=== PATIENT | female | born 2000 | race Caucasian/White ===

== ENCOUNTER → 2023-12-22 13:53 | Outpatient (BNVA) | payer BC, SELFPAY | DX: Z76.89 Persons encountering health services in other specified circumstances (principal) | CPT/HCPCS: 80053; 80061; 84439; 84443; 84481; 85025 ==

== ENCOUNTER 2024-03-05 20:34 | Emergency (ER) | payer BC, MEDICAID, SELFPAY ==
[2024-03-05 20:48] VITALS: BP 138/96; PULSE 102; RESP 22; TEMP 36.8; O2SAT 98; BMI 51.0
[2024-03-05 21:12] LABS: Basophils % 0.2 %; Eosinophils % 0.1 %; Hematocrit 46.8 % (36-47); Lymphocytes % 5.7 %; Mean Corpuscular HGB Conc 32.5 g/dL (30-55); Mean Corpuscular Hemoglobin 28.4 pg (27-33); Mean Corpuscular Volume 87.5 fl (85-98); Monocytes % 5.7 %; Neutrophils # 15.15 10^3/uL (1.8-7.7); Nucleated Red Blood Cells % 0 %; Platelet Count 305 10^3/cmm (157-399); Red Blood Count 5.35 10^6/uL (3.85-5.65); Red Cell Distribution Width 12.4 % (12.1-15.1); White Blood Count 17.24 10^3/uL (3.29-11.43)
[2024-03-05 21:23] LABS: HCG, Serum Qual Negative (Negative)
[2024-03-05 21:29] LABS: Alanine Aminotransferase 17 U/L (0-33); Albumin Level 4.5 g/dL (3.5-5.2); Alkaline Phosphatase 144 U/L (35-105); Anion Gap 19.1 (5-19); Aspartate Amino Transferase 21 U/L (0-32); Blood Urea Nitrogen 11 mg/dL (6-20); Calcium 9.9 mg/dL (8.5-10.5); Carbon Dioxide 21 mmol/L (22-29); Chloride 99 mmol/L (98-107); Creatinine Clr Calc Pharmacy 163.7347; Globulin 4.1 g/dL (1.3-4.6); Glomerular Filtration Rate 102.8 mL/min (90-130); Glucose 157 mg/dL (65-115); Lipase 31 U/L (13-60); Osmolality Calculated 283 mOsm/kg (285-295); Potassium 4.1 mmol/L (3.5-5.1); Sodium 135 mmol/L (136-145); Total Bilirubin 0.5 mg/dL (0.15-1.2); Total Protein 8.6 g/dL (6.6-8.7)
--- NOTE | 2024-03-05 21:39 | W.ED.NAVMDI ---
HPI - Nausea/Vomiting/Diarrhea General: Chief complaint: Nausea/Vomiting/Diarrhea Stated complaint: n/v/d abd cramping Time Seen by Provider: 03/05/24 21:37 History of Present Illness: Patient is a 23-year-old female that presents to the emergency department with nausea vomiting diarrhea. Abrupt onset 1700 today although she reports some nausea and possibly vomiting as early as yesterday. Denies fever, chills. Has epigastric to umbilicus abdominal pain and some right lower quadrant abdominal pain Related Data Home Medications Medication Instructions Recorded Confirmed biotin 10,000 mcg chewable tablet mcg PO 12/22/23 02/27/24 (Hair, Skin and Nails (biotin)) Previous Rx's Medication Instructions Recorded hydroxyzine HCl 25 mg tablet 25 mg PO BID PRN itching #30 tabs 12/22/23 albuterol sulfate 90 mcg/actuation 2 puff inhalation Q6H PRN 12/24/23 aerosol inhaler (Ventolin HFA) shortness of breath or wheezing #6.7 grams escitalopram oxalate 10 mg tablet 10 mg PO DAILY #30 tabs 02/27/24 (Lexapro) exenatide 10 mcg/dose(250 10 mcg (0.04 mL) SUBCUT BID #2.4 mL 02/27/24 mcg/mL)2.4 mL subcutaneous pen injector ondansetron 4 mg disintegrating 4 mg PO TID PRN nausea and 03/06/24 tablet vomiting 5 days #20 tabs Allergies Allergy/AdvReac Type Severity Reaction Status Date / Time No Known Drug Allergies Allergy Unknown Verified 02/27/24 10:30 Review of Systems General: Reports: 10 or more systems reviewed and unremarkable except in HPI and below and Other (Reports abdominal pain, nausea vomiting diarrhea) [facility] ED PFSH: Medical History Anxiety Chronic shortness of breath BMI 50.0-59.9, adult Painful menstrual periods Encounter to establish care Ingrown toenail Surgical History Hx of wisdom tooth extraction Family History Grandmother Breast cancer Family/Other Ovarian cancer Grandmother Breast cancer TIA (transient ischemic attack) Seizure disorder Diabetes Congestive heart failure (CHF) Heart disease Father No problems noted. Social History Smoking and tobacco/nicotine status: current every day tobacco/nicotine user Physical Exam Const: COMMON NORMALS: no acute distress, patient oriented x3 and alert GENERAL APPEARANCE: cooperative ORIENTATION/CONSCIOUSNESS: Yes awake, Yes oriented to person, Yes oriented to place and Yes oriented to time HENMT: COMMON NORMALS: normocephalic and atraumatic HEAD & SCALP: normocephalic and atraumatic FACE & SINUS: normal facial exam MOUTH: Normal oral and palatal mucosa present THROAT: posterior oropharynx normal Eye: COMMON NORMALS: Equal, round and reactive pupils present, EOMs intact bilaterally, conjunctivae normal and no scleral icterus GENERAL EYE: appearance normal, both eyes and all related structures ALIGNMENT: Yes alignment normal PERIORBITAL: periorbital findings normal CONJUNCTIVA: Yes conjunctivae normal PUPIL: Yes Equal, round and reactive pupils present Neck/C-Spine: COMMON NORMALS: full ROM GENERAL: Yes normal visual inspection Lymph: LYMPHATIC: no lymphadenopathy noted Chest: COMMONS NORMALS: normal inspection of the chest Breast/axilla inspection: Yes no chest deformity, asymmetry, normal contours, no nodules, masses, tenderness Resp: COMMON NORMALS: normal respiratory effort, No retractions, No use of accessory muscles and clear to auscultation bilaterally EFFORT & INSPECTION: Yes able to speak in complete sentences and Yes symmetric chest movement AUSCULTATION: clear to auscultation bilaterally Cardio: COMMON NORMALS: regular rate, regular rhythm and Peripheral pulses 2+ throughout RATE: regular rate RHYTHM: regular rhythm PERIPHERAL PULSES: Peripheral pulses 2+ throughout GI: COMMON NORMALS: Normal to inspection, nondistended, normoactive bowel sounds present, Soft to palpation, non-tender and No hepatosplenomegaly present INSPECTION: Yes normal to inspection AUSCULTATION: Yes Hypoactive bowel sounds present PALPATION: Yes Soft to palpation, Yes Tenderness to palpation present (GI) (Umbilicus) Details: RLQ and other and Yes No hepatosplenomegaly present RECTAL EXAM: deferred Extremity: COMMON NORMALS: normal to inspection GENERAL: Yes normal exam except as noted Neuro: COMMON NORMALS: patient oriented x3 SENSORIUM/ORIENTATION: Yes alert, Yes oriented to person, Yes oriented to place and Yes oriented to time CRANIAL NERVES: Yes CN normal except as noted Psych: COMMON NORMALS: mental status grossly normal, Normal thought process present, cooperative, activity/motor behavior normal, denies homicidal ideation and denies suicidal ideation THOUGHT PROCESS: Normal thought process present Skin: COMMON NORMALS: no rashes or lesions noted, no wounds and turgor normal GENERAL SKIN EXAM: no rashes or lesions noted and turgor normal Course Vital Signs: Vital signs: Vital Signs Temperature 98.2 F 03/05/24 20:48 Pulse Rate 79 03/05/24 23:16 Respiratory Rate 16 03/05/24 23:16 Blood Pressure 112/71 03/05/24 23:16 Pulse Oximetry 96 03/05/24 23:16 Oxygen Delivery Me thod Room Air 03/05/24 23:16 MDM - Nausea/Vomiting/Diarrhea Medical Decision Making Patient evaluated in the emergency department today for abdominal pain, nausea vomiting diarrhea. Patient underwent laboratory evaluation which included a CBC, CMP, lipase, lactic. Laboratory evaluation revealed a leukocytosis of 17,000 but otherwise unremarkable labs. Lactic acid was 1.9. She has normal renal and liver function/enzymes. Her urinalysis did reveal some hematuria and possibly bacteria but hard to determine if this is contaminant. Patient is on her menstrual cycle. She did undergo a CT abdomen pelvis with contrast which revealed no acute intra-abdominal pathologies. Patient may indeed have food poisoning. We Talked about the evolution of foodborne illness. I am advising her to monitor her symptoms closely. The diarrhea should begin to improve over the next 24 to 48 hours. She should return if she is not getting better or if she is getting worse. Patient is agreeable. I am going to send her home with Jorje MURGUIA. Patient is agreeable Lab Data 03/05/24 20:21 03/05/24 20:21 Radiology Impressions Abdomen/Pelvis CT 03/05/24 21:52 IMPRESSION: No acute intra-abdominal process. Laboratory Results WBC 17.24 10^3/uL (3.29-11.43) H 03/05/24 20:21 RBC 5.35 10^6/uL (3.85-5.65) 03/05/24 20:21 Hgb 15.20 g/dL (11.27-16.99) 03/05/24 20:21 Hct 46.8 % (36-47) 03/05/24 20:21 MCV 87.5 fl (85-98) 03/05/24 20:21 MCH 28.4 pg (27-33) 03/05/24 20:21 MCHC 32.5 g/dL (30-55) 03/05/24 20:21 RDW 12.4 % (12.1-15.1) 03/05/24 20:21 Plt Count 305 10^3/cmm (157-399) 03/05/24 20:21 MPV 10.0 fL (7.4-10.4) 03/05/24 20:21 Neut % (Auto) 88.0 % 03/05/24 20:21 Lymph % (Auto) 5.7 % 03/05/24 20:21 [place] % (Auto) 5.7 % 03/05/24 20:21 Eos % (Auto) 0.1 % 03/05/24 20:21 Baso % (Auto) 0.2 % 03/05/24 20:21 Neut # (Auto) 15.15 10^3/uL (1.8-7.7) H 03/05/24 20:21 Lymph # (Auto) 1.0 10^3/uL (0.8-4.8) 03/05/24 20:21 [place] # (Auto) 1.0 10^3/uL (0.2-0.9) H 03/05/24 20:21 Eos # (Auto) 0.0 10^3/uL (0.0-0.8) 03/05/24 20:21 Baso # (Auto) 0.0 10^3/uL (0.0-0.1) 03/05/24 20:21 Nucleated RBC % (auto) 0 % 03/05/24 20:21 Nucleated RBCs # 0.0 /100WBC 03/05/24 20:21 Sodium 135 mmol/L (136-145) L 03/05/24 20:21 Potassium 4.1 mmol/L (3.5-5.1) 03/05/24 20:21 Chloride 99 mmol/L (98-107) 03/05/24 20:21 Carbon Dioxide 21 mmol/L (22-29) L 03/05/24 20:21 Anion Gap 19.1 (5-19) H 03/05/24 20:21 BUN 11 mg/dL (6-20) 03/05/24 20:21 Creatinine 0.7 mg/dL (0.5-0.9) 03/05/24 20:21 GFR Calculation 102.8 mL/min (90-130) 03/05/24 20:21 Glucose 157 mg/dL (65-115) H 03/05/24 20:21 Calculated Osmolality 283 mOsm/kg (285-295) L 03/05/24 20:21 Lactic Acid 1.9 mmol/L (0.5-2.2) 03/05/24 20:21 Calcium 9.9 mg/dL (8.5-10.5) 03/05/24 20:21 Total Bilirubin 0.5 mg/dL (0.15-1.2) 03/05/24 20:21 AST 21 U/L (0-32) 03/05/24 20:21 ALT 17 U/L (0-33) 03/05/24 20:21 Alkaline Phosphatase 144 U/L (35-105) H 03/05/24 20:21 Total Protein 8.6 g/dL (6.6-8.7) 03/05/24 20:21 Albumin 4.5 g/dL (3.5-5.2) 03/05/24 20:21 Globulin 4.1 g/dL (1.3-4.6) 03/05/24 20:21 Lipase 31 U/L (13-60) 03/05/24 20:21 HCG, Qual Negative (Negative) 03/05/24 20:21 Urine Color Dark yellow (Yellow) A 03/05/24 22:37 Urine Appearance Cloudy (CLEAR) A 03/05/24 22:37 Urine pH 6.5 (5-7) 03/05/24 22:37 Ur Specific [place] 1.079 (1.005-1.030) H 03/05/24 22:37 Urine Protein 3+ (Negative) A 03/05/24 22:37 Urine Glucose (UA) Negative (Normal) 03/05/24 22:37 Urine Ketones 3+ (Negative) H 03/05/24 22:37 Urine Blood 3+ (Negative) A 03/05/24 22:37 Urine Nitrate Negative (Negative) 03/05/24 22:37 Urine Bilirubin Negative (Negative) 03/05/24 22:37 Urine Urobilinogen 1.0 mg/dL (Negative) 03/05/24 22:37 Ur Leukocyte Esterase Negative (Negative) 03/05/24 22:37 Urine RBC 51-100 /hpf (0-2) H 03/05/24 22:37 Urine WBC 6-10 /hpf (0-5) 03/05/24 22:37 Ur Squamous Epith Cells 11-20 /hpf (0-5) 03/05/24 22:37 Amorphous Sediment Not Reportable 03/05/24 22:37 Urine Bacteria 2+ /hpf (NONE) H 03/05/24 22:37 Hyaline Casts 7.01 /lpf 03/05/24 22:37 Urine Mucus Trace /hpf 03/05/24 22:37 All radiology interpretation(s) finalized by discharge Discharge Plan Discharge Patient Disposition: Home Clinical Impression: Food poisoning Condition: Stable Prescriptions: New ondansetron 4 mg tablet,disintegrating 4 mg PO TID PRN (Reason: nausea and vomiting) 5 Days Qty: 20 0RF No Action exenatide 10 mcg/dose(250 mcg/mL) 2.4 mL pen injector 10 mcg SUBCUT BID Qty: 2.4 2RF escitalopram oxalate [Lexapro] 10 mg tablet 10 mg PO DAILY Qty: 30 0RF Hair, Skin and Nails (biotin) 10,000 mcg tablet,chewable PO hydroxyzine HCl 25 mg tablet 25 mg PO BID PRN (Reason: itching) Qty: 30 0RF albuterol sulfate [Ventolin HFA] 90 mcg/actuation HFA aerosol inhaler 2 puff inhalation Q6H PRN (Reason: shortness of breath or wheezing) Qty: 6.7 0RF Discharge Orders: Discharge ED (Routine); Ordered 03/06/24 Ordered By: Claudia Carrillo McTeer Referrals: Jordyn Thomas NP [Primary Care Provider] - Discharge Diet: Advance as tolerated Discharge Activity: Resume usual activity Patient Instructions: Acute Nausea and Vomiting (ED), Pain Management Activity Restrictions/Additional Instructions: Please return to the emergency department for new, concerning, worsening symptoms Coding Level of Care Code ED It Project Coordinator for Lauren Yu
--- NOTE | 2024-03-05 21:52 | CTR_ITS ---
PROCEDURE INFORMATION: Exam: CT Abdomen And Pelvis With Contrast Exam date and time: 03/05/2024 10:27 PM Age: 23 years old Clinical indication: Pain and abnormal findings; Abnormal lab test; Elevated wbc; Nausea and vomiting; Abdominal pain; Localized; Right lower quadrant (rlq); Patient HX: Rlq pain with n/v/d. Wbc of 18k. ; Additional info: Right lower quadrant abdominal pain TECHNIQUE: Imaging protocol: Computed tomography of the abdomen and pelvis with contrast. Radiation optimization: All CT scans at this facility use at least one of these dose optimization techniques: automated exposure control; mA and/or kV adjustment per patient size (includes targeted exams where dose is matched to clinical indication); or iterative reconstruction. Contrast material: OMNI 350; Contrast volume: 100 ml; Contrast route: INTRAVENOUS (IV); COMPARISON: No relevant prior studies available. RADIATION DOSE METRICS: Total DLP (mGy-cm): 1179.13 FINDINGS: Liver: Normal. No mass. Gallbladder and biliary ducts: Normal. No calcified stones. No ductal dilation. Pancreas: Normal. No ductal dilation. Spleen: Normal. No splenomegaly. Adrenal glands: Normal. No mass. Kidneys and ureters: Normal. No hydronephrosis. Stomach and bowel: Mild wall thickening of the distal colon, likely related to underdistention. Appendix: No evidence of appendicitis. Intraperitoneal space: Unremarkable. No free air. No significant fluid collection. Vasculature: There are numerous benign phleboliths in the pelvis. Lymph nodes: Prominent subcentimeter right lower quadrant lymph nodes, that can be seen in cases of mesenteric adenitis. Urinary bladder: Unremarkable as visualized. Reproductive: Unremarkable as visualized. Bones/joints: Unremarkable. No acute fracture. Soft tissues: There is a fat-containing umbilical hernia. CT/CT abdomen pelvis w con* [id number] IMPRESSION: No acute intra-abdominal process.
[2024-03-05] MEDS: ondansetron 2 mg/ML SDV 2 mL 4 MG IVP (21:55)
[2024-03-05 21:56] VITALS: RESP 20
[2024-03-05] MEDS: morphine 4 mg/mL SDV 1 mL IVP (21:56)
[2024-03-05] MEDS: sodium chloride 0.9% 1,000 ML 999 ML IV (21:56)
[2024-03-05 22:11] LABS: Lactic Sepsis W/Reflex 1.9 mmol/L (0.5-2.2)
[2024-03-05] MEDS: iohexol 350 mg/mL 500 mL Btl (per mL) IV (22:28)
[2024-03-05 22:43] LABS: Bilirubin Urine Negative (Negative); Blood Urine 3+ (Negative); Glucose Urine UA Negative (Normal); Ketones Urine 3+ (Negative); Leukocyte Esterase Urine Negative (Negative); Nitrate Urine Negative (Negative); Protein Urine 3+ (Negative); Urine Appearance Cloudy (CLEAR); Urine Color Dark Yellow (Yellow); pH Urine 6.5 (5-7)
[2024-03-05 22:46] LABS: Specific Gravity, Urine 1.079 (1.005-1.030)
[2024-03-05 22:48] LABS: Add Urine Microscopic? YES; Bacteria Urine 2+ /hpf; Hyaline Casts Urine 7.01 /lpf; RBC Urine 51-100 /hpf (0-2); Universal Test for UA Present (0)
[2024-03-05 22:58] LABS: Add Urine Culture? No; Mucus Urine TRACE /hpf
[2024-03-05 23:16] VITALS: BP 112/71; PULSE 79; RESP 16; O2SAT 96
[2024-03-06 00:26] VITALS: BP 118/78; PULSE 107; RESP 16; O2SAT 97
== END 2024-03-06 00:27 | disposition home or self-care (01) ==
PROVIDERS: Emergency Medicine; Emergency Provider Nurse Practitioner
DX: A05.9 Bacterial foodborne intoxication, unspecified (principal); Z79.82 Long term (current) use of aspirin
CPT/HCPCS: 36415; 74177; 80053; 81001; 83605; 83690; 84703; 85025; 96374; 96375; 99285; J2270; J2405; J7030

== ENCOUNTER → 2024-03-08 08:50 | Outpatient (BNVA) | payer BC, MEDICAID, SELFPAY | PROVIDERS: Visit Provider Nurse Practitioner Women's Health | DX: N83.201 Unspecified ovarian cyst, right side (principal) | CPT/HCPCS: 76830 ==

== ENCOUNTER → 2024-06-02 10:33 | Outpatient (BNVA) | payer BC, MEDICAID, SELFPAY | PROVIDERS: Visit Provider Nurse Practitioner Women's Health | DX: N92.6 Irregular menstruation, unspecified (principal); Z01.419 Encounter for gynecological examination (general) (routine) without abnormal findings | CPT/HCPCS: 80053; 82306; 82465; 82670; 83001; 83002; 83036; 83520; 83525; 83718; 83721; 84146; 84402; 84403; 85025; 87624 ==

== ENCOUNTER 2024-07-23 12:42 | Emergency (ER) | payer BC, MEDICAID, SELFPAY ==
[2024-07-23 12:58] VITALS: BP 136/95; PULSE 116; RESP 18; TEMP 36.8; O2SAT 97; BMI 47.8
[2024-07-23 15:02] VITALS: BP 135/95; PULSE 95; RESP 16; O2SAT 97
--- NOTE | 2024-07-23 15:09 | XR_ITS ---
WS: [id number] Exam: XR chest 2V* [id number] Date/Time of Exam: 07/23/2024 3:25 PM Reason For Exam: Cough and SOB No priors. Lungs are fully inflated and clear. Heart size is normal. The mediastinum is normal in contour. Bony structures are intact. XR/XR chest 2V* [id number] IMPRESSION: 1. No acute cardiopulmonary finding.
--- NOTE | 2024-07-23 16:02 | ED_ITS ---
HPI - SOB/Dyspnea General: Chief Complaint: Shortness of Breath/Dyspnea Stated Complaint: trouble breathing body shakes Time Seen by Provider: 07/23/24 14:52 History of Present Illness: HPI Narrative: Yenny Napoles presents with a history of recent respiratory infection and acute onset of severe weakness and difficulty breathing. The patient initially sought treatment at a walk-in clinic for persistent coughing, where she was prescribed three medications. Today, while engaging in outdoor activities, Ms. Napoles experienced sudden full-body weakness and significant breathing difficulties. She reports barely being able to make it to her daughter's room and almost passing out. The patient describes severe wheezing that was unresponsive to her inhaler use. The weakness was so profound that she could hardly walk or lift her arms. Upon arrival at the clinic, she required a wheelchair due to uncontrollable shaking. Ms. Napoles notes that she has never experienced this level of weakness before. She reports feeling excessively hot and sweating profusely, requiring two fans despite her house being set at 70 degrees. However, she does not believe she has had a fever. The patient is currently taking cough syrup, and her medications include dexamethasone (10 pills taken at once), azithromycin, control, and Lexapro. She mentions that the dexamethasone pills were smaller than her control pills. The patient has a follow-up appointment scheduled with her primary care physician on . She denies any improvement in her condition with the use of her inhaler during this acute episode. Related Data Home Medications ?Medication ?Instructions ?Recorded ?Confirmed biotin 10,000 mcg chewable tablet 10,000 mcg PO QPM 07/23/24 (Hair, Skin and Nails (biotin)) drospirenone 3 mg-ethinyl 1 tab PO QPM 07/23/24 estradiol 0.02 mg tablet (JENNA (28)) escitalopram oxalate 20 mg tablet 20 mg PO QPM 5 07/23/24 Previous Rx's ?Medication ?Instructions ?Recorded exenatide 10 mcg/dose(250 10 mcg (0.04 mL) SUBCUT BID #2.4 mL 02/27/24 mcg/mL)2.4 mL subcutaneous pen injector buspirone 7.5 mg tablet 7.5 mg PO TID PRN anxiety #3 0 tabs 03/31/24 albuterol sulfate 90 mcg/actuation 2 puff inhalation Q 6H PRN 06/21/24 aerosol inhaler (Ventolin HFA) shortness of breath or wheezing #6.7 grams azithromycin 250 mg tablet See Rx Instructions PO .COM PLEX #6 07/22/24 tabs yhprhzytohjcaie-[id number]-RZ 5 ml PO Q6H PRN col d symptoms #118 07/22/24 2 mg-30 mg-10 mg/5 mL oral syrup mL (Bromfed DM) Allergies Allergy/AdvReac Type Severity Reaction Status Date / Time No Known Drug Allergies Allergy Unknown Verified 07/23/24 13:02 Review of Systems General: Reports: 10 or more systems reviewed and unremarkable except in HPI and below PFSH ED PFSH: Medical History (Updated 07/23/24 @ 16:03 by Job Fox DO) PTSD (post-traumatic stress disorder) Abrasion of right knee Anxiety Chronic shortness of breath BMI 50.0-59.9, adult Painful menstrual periods Encounter to establish care Ingrown toenail Surgical History Hx of wisdom tooth extraction Family History Grandmother Breast cancer Family/Other Ovarian cancer Grandmother Breast cancer TIA (transient ischemic attack) Seizure disorder Diabetes Congestive heart failure (CHF) Heart disease Father No problems noted. Social History Smoking and tobacco/nicotine status: current every day tobacco/nicotine user Physical Exam Const: COMMON NORMALS: no acute distress, patient oriented x3, healthy appearing, alert and well nourished HENMT: COMMON NORMALS: normocephalic HEAD & SCALP: normocephalic Eye: COMMON NORMALS: EOMs intact bilaterally Neck/C-Spine: COMMON NORMALS: full ROM and supple Resp: COMMON NORMALS: normal respiratory effort, No retractions and clear to auscultation bilaterally AUSCULTATION: clear to auscultation bilaterally Cardio: COMMON NORMALS: regular rate, regular rhythm, No gallops present (Cardio) and No murmurs present (Cardio) RATE: regular rate RHYTHM: regular rhythm GI: COMMON NORMALS: Soft to palpation and non-tender PALPATION: Yes Soft to palpation Extremity: GENERAL: Yes normal exam except as noted Neuro: COMMON NORMALS: patient oriented x3 SENSORIUM/ORIENTATION: Yes alert Skin: COMMON NORMALS: no rashes or lesions noted GENERAL SKIN EXAM: no r ashes or lesions noted Course Vital Signs: Vital signs: Vital Signs Temperature 98.3 F 07/23/24 12:58 Pulse Rate 68 07/23/24 16:10 Respiratory Rate 16 07/23/24 16:10 Blood Pressure 94/53 07/23/24 16:10 Pulse Oximetry 98 07/23/24 16:10 Oxygen Delivery Me thod Room Air 07/23/24 12:58 MDM - SOB/Dyspnea Medical Decision Making 24-year-old female presents emergency department for shortness of breath and cough. She was seen in urgent care yesterday and diagnosed with respiratory infection. She was given steroids and azithromycin. She noted that she felt weaker today with no improvement in her cough. Physical exam was unremarkable. She was initially tachycardic but this resolved with resting in the room. Patient did not have or endorse chest pain. Chest x-ray had no acute findings. Reassured the patient that her cough and symptoms were likely secondary to a viral illness. Return precautions were discussed. Encouraged the patient to follow-up with her primary care physician with her scheduled appointment on . Patient was discharged home in good condition Differential Diagnosis Likely acute exacerbation of chronic obstructive airways disease, community acquired pneumonia, asthma with exacerbation and pulmonary embolism Lab Data Labs/Radiology: Radiology Impressions Chest X-Ray 07/23/24 15:09 IMPRESSION: 1. No acute cardiopulmonary finding. All radiology interpretation(s) finalized by discharge Discharge Plan Discharge Patient Disposition: Home Clinical Impression: Chronic shortness of breath Cough Qualifiers: Cough type: acute Qualified Code(s): R05.1 - Acute cough Condition: Stable Prescriptions: No Action exenatide 10 mcg/dose(250 mcg/mL) 2.4 mL pen injector 10 mcg SUBCUT BID Qty: 2.4 2RF Hair, Skin and Nails (biotin) 10,000 mcg tablet,chewable 10,000 mcg PO QPM buspirone 7.5 mg tablet 7.5 mg PO TID PRN (Reason: anxiety) Qty: 30 0RF azithromycin 250 mg tablet See Rx Instructions PO .COMPLEX Qty: 6 0RF Rx Instructions: Take 2 tablets today (day 1), then one tablet for 4 days (days 2-5) PO [id number]-[id number]-PR [Bromfed DM] 2-30-10 mg/5 mL syrup 5 ml PO Q6H PRN (Reason: cold symptoms) Qty: 118 0RF albuterol sulfate [Ventolin HFA] 90 mcg/actuation HFA aerosol inhaler 2 puff inhalation Q6H PRN (Reason: shortness of breath or wheezing) Qty: 6.7 0RF escitalopram oxalate 20 mg tablet 20 mg PO QPM drospirenone-ethinyl estradiol [JENNA (28)] 3-0.02 mg tablet 1 tab PO QPM Discharge Orders: Discharge ED (Routine); Ordered 07/23/24 Ordered By: Job Fox Referrals: Jordyn Thomas POWDER COAT PAINTER [Primary Care Provider, [facility]] Discharge Diet: Advance as tolerated Discharge Activity: Increase activity as tolerated Patient Instructions: Antitussives (By mouth), Cold Symptoms (ED), Acute Cough (ED), Opioid Safety, Pain Management Activity Restrictions/Additional Instructions: Please return to the emergency department with any new or worsening symptoms. Please follow-up with your primary care physician for any persistent symptoms. Print Language: Congolese Coding Level of Care Code ED Pyrotechnist for Lauren Yu
[2024-07-23 16:10] VITALS: BP 94/53; PULSE 68; RESP 16; O2SAT 98
== END 2024-07-23 16:15 | disposition home or self-care (01) ==
PROVIDERS: Emergency Provider General Practice
DX: R06.02 Shortness of breath (principal); R05.1 Acute cough; Z72.0 Tobacco use
CPT/HCPCS: 71046; 99283

== ENCOUNTER → 2024-07-29 09:10 | Outpatient (BNVA) | payer BC, MEDICAID, SELFPAY | DX: R00.2 Palpitations (principal) | CPT/HCPCS: 80053; 84439; 84443; 84481 ==

== ENCOUNTER 2025-01-05 12:20 | Outpatient (CLI) | payer BC, MEDICAID, SELFPAY ==
--- NOTE | 2025-01-05 12:28 | XR_ITS ---
WS: [id number] Exam: XR thoracic spine 3V* [id number] Date/Time of Exam: 01/05/2025 12:30 PM Reason For Exam: Back pain No fracture or malalignment. Mild dextroscoliosis. Disc spaces are preserved. Normal paraspinal soft tissues. XR/XR thoracic spine 3V* [id number] IMPRESSION: 1. Very slight dextroscoliosis otherwise normal T-spine study.
== END 2025-01-05 12:21 | disposition home or self-care (01) ==
LOC: RAD 12:23
PROVIDERS: Visit Provider Registered Nurse Neonatal Intensive Care
DX: M54.9 Dorsalgia, unspecified (principal); M41.84 Other forms of scoliosis, thoracic region
CPT/HCPCS: 72072